=== PATIENT | female | born 1950 | race Caucasian/White ===

== ENCOUNTER → 2017-10-11 | Outpatient (CLI) | payer MEDICARE, OTHER | LOC: M.RAD 10:00 | DX: K44.9 Diaphragmatic hernia without obstruction or gangrene (principal); J98.6 Disorders of diaphragm; R06.02 Shortness of breath ==

== ENCOUNTER → 2018-12-05 | Outpatient (CLI) | payer MEDICARE, OTHER | LOC: M.ULTRA 10:00 | DX: N28.1 Cyst of kidney, acquired (principal) ==